=== PATIENT | female | born 1960 | race Caucasian/White ===

== ENCOUNTER → 2017-08-19 | Outpatient (CLI) | payer MEDICARE ==
--- NOTE | 2017-08-19 17:06 | REP ---
Clinical: Follow up abnormal findings. Comparison: Chest x-ray dated 08/07/2017; outside chest CT dated 03/13/2017. Findings: The bilateral lung [place] are well-aerated, symmetric, and clear. No consolidation, nodule or mass lesion is appreciated. No significant obvious interstitial disease noted. No pleural effusion/reaction or pneumothorax. Tracheobronchial tree is patent and without bronchiectasis. Mediastinum demonstrates atherosclerotic changes to the thoracic aorta and coronary arteries without aortic aneurysm or cardiomegaly. No pericardial effusion. No obvious adenopathy. Thyroid gland appears moderately enlarged and heterogeneous. Upper abdomen demonstrates evidence to suggest cirrhosis with portal hypertension including collateral circulation and splenomegaly as well as recannulated umbilical vein. Cholelithiasis noted. Impression: 1. No acute mediastinal or pleuroparenchymal process appreciated. 2. Evidence for cirrhosis and portal hypertension as well as cholelithiasis. Signed by Markie Bernardo MD 08/19/2017 04:58 P
== END ==
LOC: M RAD 15:41
PROVIDERS: ATTEND Internal Medicine Pulmonary Disease
DX: R91.8 Other nonspecific abnormal finding of lung field (principal)